=== PATIENT | female | born 1970 | race African-American/Black ===

== ENCOUNTER 2022-10-19 08:55 | Emergency (ER) | payer OTHER, SELFPAY ==
[2022-10-19 09:21] VITALS: BP 158/97; PULSE 68; RESP 16; TEMP 36.3; O2SAT 99
--- NOTE | 2022-10-19 09:38 | ED.UPPEXIN ---
HPI - Extremity Injury (Upper) General Chief Complaint: Extremity Injury, Upper Stated Complaint: cough Time Seen by Provider: 10/19/22 09:38 Source: patient Mode of arrival: ambulatory Limitations: no limitations History of Present Illness HPI narrative: 51-year-old female presents with complaint of cough for 5 days. Denies chest pain and shortness of breath. Afebrile. Taking [id number] cough suppressant and Mucinex with little relief. Patient reports cough is worse at night. All systems reviewed and negative except as noted above. Related Data Home Medications Medication Instructions Recorded Confirmed carvedilol 25 mg tablet 25 mg PO Q12H 06/05/22 10/19/22 fexofenadine 60 mg tablet (Charley 60 mg PO Q12H 06/05/22 10/19/22 Allergy) lisinopril 20 mg tablet 20 mg PO DAILY 06/05/22 10/19/22 rosuvastatin 5 mg tablet 5 mg PO DAILY 06/05/22 10/19/22 Allergies Allergy/AdvReac Type Severity Reaction Status Date / Time No Known Allergies Allergy Verified 10/19/22 09:35 Review of Systems Review of Systems: CONSTITUTIONAL: Denies fever, chills, or sweats. EYES: Denies visual changes, redness, or discharge. ENT: Denies rhinorrhea, congestion, sore throat, or otalgia. CARDIOVASCULAR: Denies chest pain, palpitations, or edema. RESPIRATORY: Reports cough. Denies dyspnea. GASTROINTESTINAL: Denies abdominal pain, nausea, vomiting, or diarrhea. GENITOURINARY: Denies dysuria or hematuria. SKIN: Denies rash or itching. MUSCULOSKELETAL: Denies back pain, joint pain, or myalgia. NEUROLOGIC: Denies headache, numbness, or weakness. PSYCHIATRIC: Denies anxiety or depression. All other systems reviewed are negative, except as documented in HPI. [facility] Past Medical History Medical History Acid reflux Allergies Hypertension Migraine Surgical History Surgical History S/P partial hysterectomy Tubal ligation status [place] teeth removed Family History Family History Grandparent Hypertension Heart disease Social History Social History Smoking status: Never smoker Second hand tobacco smoke exposure: No Alcohol intake: current Substance use: never Substance use type: does not use Lack of Transportation: No Lack of Food: Never True Current Housing: I Have Housing Concerned About Future Housing: No Difficulty Paying Gas/Electric Bills: No Difficulty Paying for Meds: No Currently Unemployed: No Education: Trade/Vocational Certificate Difficulty w/ Childcare or Family Care: No Comments At time of signature, agree with nursing past medical, surgical, social and family history. There is no relevant family history pertinent to the presenting complaint. Exam Narrative: GENERAL: This is a well-nourished, well-developed patient, in no apparent distress. HEAD: normocephalic, atraumatic. EYES: PERRL. Sclera clear/white. Vision is grossly intact. EARS: External ears normal, auditory canals clear and without drainage, TMs normal without perforation. Hearing grossly intact. NOSE: External nose normal with no obvious nasal discharge, nares without redness, no rhinorrhea. THROAT: Mucous membranes moist, posterior pharynx clear. NECK: Neck supple, non-tender without lymphadenopathy, masses or thyromegaly. CARDIOVASCULAR: Regular rate and rhythm without murmurs, gallops, or rubs. RESPIRATORY: Clear to auscultation. Breath sounds equal bilaterally. No wheezes, rales, or rhonchi. dry cough noted. SKIN: warm, Dry, intact with no suspicious lesions or rash, good texture and turgor. NEURO: awake, alert, and oriented to person, place and time. There were no obvious focal neurologic abnormalities. EXTREMITIES: No joint tenderness, effusion, or edema noted. Course Course Le
== END 2022-10-19 09:55 | disposition home or self-care (01) ==
PROVIDERS: Emergency Provider Nurse Practitioner Family
DX: J06.9 Acute upper respiratory infection, unspecified (principal); K21.9 Gastro-esophageal reflux disease without esophagitis; I10 Essential (primary) hypertension
CPT/HCPCS: 99213; G0463

== ENCOUNTER 2022-11-12 08:05 | Emergency (ER) | payer OTHER, SELFPAY ==
--- NOTE | ~2022-11-12 | XR_ITS ---
EXAMINATION: XR chest 2V DATE: 11/12/2022 08:27 INDICATION: Nonproductive cough TECHNIQUE: frontal and lateral views of the chest were obtained. COMPARISON: None FINDINGS: The lungs are clear with no focal airspace opacities, pulmonary edema, pleural effusion or pneumothor ax. The cardiomediastinal silhouette is normal. Visualized bones and soft tissues are unremarkable. IMPRESSION: 1. No acute cardiopulmonary disease. Reviewed, dictated and finalized at location A.
--- NOTE | 2022-11-12 08:06 | ED.URI ---
HPI - URI/Sore Throat General Chief Complaint: Upper Respiratory Infection Stated Complaint: cough Time Seen by Provider: 11/12/22 08:06 Source: patient Mode of arrival: ambulatory Limitations: no limitations History of Present Illness HPI Narrative: Ms Mcintyre is a 51-year-old female patient presenting to the clinic today with complaints of cough x1 month. She reports she was seen in the [facility] on October 19 2022 with same complaint. Was diagnosed with URI and given prescriptions for Medrol Dosepak, Tessalon Perles, and albuterol inhaler. She reports she has taken all the medicine and is using the albuterol inhaler but still having coughing fits. Cough is nonproductive. She denies any fever or chills. She denies any shortness of breath or chest pain. States her throat does hurt due to the coughing. Denies any runny nose or congestion. Feels as though she is having mucus in her throat but unable to get up. MD elicited complaint: cough Related Data Home Medications Medication Instructions Recorded Confirmed carvedilol 25 mg tablet 25 mg PO Q12H 06/05/22 11/12/22 fexofenadine 60 mg tablet (Charley 60 mg PO Q12H 06/05/22 11/12/22 Allergy) lisinopril 20 mg tablet 20 mg PO DAILY 06/05/22 11/12/22 rosuvastatin 5 mg tablet 5 mg PO DAILY 06/05/22 11/12/22 Allergies Allergy/AdvReac Type Severity Reaction Status Date / Time No Known Allergies Allergy Verified 11/12/22 08:09 Review of Systems Review of Systems: Pertinent positives per HPI. Patient denies any fever, chills, rash, headache, visual changes, dizziness, shortness of breath, chest pain, palpitations, nausea, vomiting, diarrhea, constipation, abdominal pain, or any urinary issues. [facility] Past Medical History Medical History Acid reflux Allergies Hypertension Migraine Surgical History Surgical History S/P partial hysterectomy Tubal ligation status [place] teeth removed Family History Family History Grandparent Hypertension Heart disease Social History Social History Smoking status: Never smoker Second hand tobacco smoke exposure: No Alcohol intake: current Substance use: never Substance use type: does not use Lack of Transportation: No Lack of Food: Never True Current Housing: I Have Housing Concerned About Future Housing: No Difficulty Paying Gas/Electric Bills: No Difficulty Paying for Meds: No Currently Unemployed: No Education: Trade/Vocational Certificate Difficulty w/ Childcare or Family Care: No Comments At the time of my signature, I reviewed and agree with the nursing past medical, surgical, social, and family history. There is no relevant family history pertinent to the patient complaint. Exam Narrative: General: Well-developed, well nourished, in no apparent distress Head: Normocephalic, atraumatic Eyes: Pupils equally round and reactive to light bilaterally, EOM intact, sclera and conjunctive clear, no discharge, lids normal Ears: TMs intact and clear, ear canals clear, no drainage, grossly hearing normal. Nose: Nares patent, no discharge, no inflammation, no sinus tenderness. Mouth: Oral pharynx without lesions or masses, good dentition, MMM. Oropharynx red Neck: Supple, trachea midline, no enlargement of anterior or posterior cervical nodes, no thyroid masses or goiter palpable. Cardio: Regular rate and rhythm, s1 and s2 normal, no murmur appreciated. Resp: Lung sounds tight otherwise clear, no rhonchi, rales, wheezing or rubs Course Course Emergency Course: Portions of this record may have been created with voice recognition software. Level of Care: Express Care Visit Vital Signs Vital signs: Vital Signs Temperature 36.1 C L
[2022-11-12 08:13] VITALS: BP 152/99; PULSE 73; RESP 16; TEMP 36.1; O2SAT 100
[2022-11-12] MEDS: IPRATROPIUM BR 0.02% INH SOLN 0.5 MG/2.5 ML VIAL INHALATION (08:45)
[2022-11-12] MEDS: ALBUTEROL SULFATE NEB 2.5 MG/3 ML INH INHALATION (08:45)
== END 2022-11-12 09:43 | disposition home or self-care (01) ==
PROVIDERS: Emergency Provider Nurse Practitioner Family
DX: R05.8 Other specified cough (principal); I10 Essential (primary) hypertension
CPT/HCPCS: 71046; 94640; 99213; G0463

== ENCOUNTER → 2022-11-20 10:29 | Outpatient (CLI) | payer OTHER, SELFPAY ==
--- NOTE | ~2022-11-20 | MM_ITS ---
EXAMINATION: MM screening john BI w sera HISTORY: Screening TECHNIQUE: Craniocaudal and mediolateral oblique 3-D tomosynthesis images were obtained and synthetic 2-D images were generated. CAD analysis was submitted and interpreted. COMPARISON: No prior mammogram is available for comparison at this institution. BREAST PARENCHYMAL COMPOSITION: The breasts are heterogeneously dense, which may obscure small masses . FINDINGS: There is no evidence of suspicious mass, calcification, or architectural distortion to sugg est malignancy in either breast. There has been no suspicious interval change. IMPRESSION: 1. No mammographic evidence of malignancy. 2. Recommend routine screening mammography in one year. BI-RADS Category 1: Negative Reviewed, dictated and finalized at location A.
== END ==
PROVIDERS: PCP Obstetrics & Gynecology; Visit Provider Obstetrics & Gynecology
DX: Z12.31 Encounter for screening mammogram for malignant neoplasm of breast (principal)
CPT/HCPCS: 77063; 77067

== ENCOUNTER 2023-03-27 10:52 | Outpatient (CLI) | payer OTHER, SELFPAY ==
--- NOTE | ~2023-03-27 | US_ITS ---
EXAMINATION: US pelvic complete w TV DATE: 03/27/2023 12:58 INDICATION: Pelvic pain. Status post total hysterectomy. Comparison:No prior studies for comparison. TECHNIQUE: Multiple transabdominal and endovaginal sonographic images of the pelvis performed. FINDINGS: The uterus and ovaries are surgically absent. No abnormal fluid collections or masses are i dentified. There is no free fluid in the pelvis. IMPRESSION: 1. Normal pelvic ultrasound post hysterectomy. Reviewed, dictated and finalized at location A.
== END 2023-03-27 10:53 ==
PROVIDERS: PCP Obstetrics & Gynecology; Visit Provider Obstetrics & Gynecology
DX: R10.2 Pelvic and perineal pain (principal)
CPT/HCPCS: 76830; 76856

== ENCOUNTER 2023-10-03 06:33 | Day surgery (SDC) | payer OTHER, SELFPAY ==
[2023-09-18 13:24] VITALS: BMI 30.7
[2023-09-18 14:18] VITALS: BMI 29.0
[2023-10-03 07:22] VITALS: BMI 29.5
--- NOTE | 2023-10-03 07:22 | WPDANESEPPF ---
Anes - Initial Pre Proc Eval Procedure: Operation Date: 10/03/23 09:00 Proposed Procedures p Colonoscopy - Brenden Galvin MD Date/Time: 10/03/23 07:22 Surgeon: Brenden Galvin MD Pre Op Diagnosis: Neoplasm screening Patient Data Age: 52 Gender: F Height: 1.57 m Weight: 72 kg Allergies Allergy/AdvReac Type Severity Reaction Status Date / Time iohexol Allergy Hives Verified 09/18/23 14:17 [From contrast - CT, X-RAY] Home Medications Medication Instructions Recorded Confirmed Type carvedilol 25 mg tablet 25 mg PO Q12H 06/05/22 09/18/23 History celecoxib 200 mg capsule 200 mg PO DAILY #90 caps 08/20/23 09/18/23 Rx fexofenadine 180 mg tablet 180 mg PO DAILY #90 tabs 08/20/23 09/18/23 Rx (Charley Allergy) lisinopril 20 mg tablet 20 mg PO DAILY #90 tabs 08/20/23 09/18/23 Rx pantoprazole 40 mg tablet,delayed 40 mg PO QAM #90 tabs 08/20/23 09/18/23 Rx release zolpidem 12.5 mg tablet,extended 12.5 mg PO QHS PRN insomnia #30 08/20/23 09/18/23 Rx release,multiphase (Ambien CR) tabs sodium,potassium,mag sulfates 17.5 See Rx Instructions PO .COMPLEX 09/18/23 Rx gram-3.13 gram-1.6 gram oral soln #354 mL (Suprep Bowel Prep Kit) Patient hx anesthesia problems: none Family hx anesthesia problems: none Results Review: All pre-operative results and documents have been reviewed as part of the pre-operative evaluation. [facility] Past Medical History Medical History (Updated 10/03/23 @ 07:56 by Mario Dukes DO) Acid reflux Allergies CHF (congestive heart failure) one hospitalization 10 years ago. States she hasn't had any issues since then. Hyperlipidemia Hypertension Migraine MIRELLA (obstructive sleep apnea) Surgical History Surgical History H/O: hysterectomy Tubal ligation status [place] teeth removed Family History Family History Grandparent Hypertension Heart disease Social History Social History Smoking status: Never smoker Second hand tobacco smoke exposure: No Alcohol intake: current Substance use: never Substance use type: does not use Lack of Transportation: No Lack of Food: Never True Current Housing: I Have Housing Concerned About Future Housing: No Difficulty Paying Gas/Electric Bills: No Difficulty Paying for Meds: No Currently Unemployed: No Education: Trade/Vocational Certificate Difficulty w/ Childcare or Family Care: No Living arrangements: with family Occupation/Education: occupation Gender identity (if verbalized by the patient): Female Sexual Orientation (if Verbalized by the Patient): Straight or Heterosexual Spiritual care concerns: No Anes - Eval Final PreProcedure Day of Procedure 10/03/23 07:22 Patient weight: overweight Heart: regular rate and rhythm Lungs: clear to auscultation Airway: Mallampati scale class II Neurological: alert and oriented Last oral intake: >/= 8 hours ASA classification: III Emergent: no Anesthetic plan: proceed Anesthesia type and monitoring: general GIVS and standard monitoring Results Review: All pre-operative results and documents have been reviewed as part of the pre-operative evaluation. Informed Consent: The patient's anesthetic plan and its attendant risks and benefits were discussed with the patient/family/POA. Questions were solicited and answers provided to the satisfaction of the patient/family/POA.
[2023-10-03] MEDS: LACTATED RINGERS 1,000 ML 150 ML IV CONT (07:40)
[2023-10-03 07:41] VITALS: BP 123/95; PULSE 88; RESP 16; TEMP 36.9; O2SAT 100
--- NOTE | 2023-10-03 08:12 | PM.HPGS ---
History of Present Illness History of Present Illness Consent: Risks, benefits, and alternatives have been discussed and questions answered. Patient agrees to proceed with procedure. Chief complaint: Neoplasm screening Narrative: Lucinda Mcintyre is a 52 year old female referred for screening colonoscopy. Patient gives a history of several prior colonoscopies. These were performed in [facility]. Patient was found to have colon polyps. Initially had a follow-up exam shortly after initial exam. Two years ago was told to have follow-up colonoscopy in 2 years. No old records accompany patient. Consider bowel habits are normal. Family history is significant that her mother had colon polyps. To her current weight appetite and bowel movements are normal. She has no abdominal pain nor bleeding. Review of Systems Review of Systems: Review of systems noncontributory. [facility] Past Medical History Medical History (Updated 10/03/23 @ 08:14 by Brenden Galvin MD) Acid reflux Allergies CHF (congestive heart failure) one hospitalization 10 years ago. States she hasn't had any issues since then. Hyperlipidemia Hypertension Migraine MIRELLA (obstructive sleep apnea) Surgical History Surgical History H/O: hysterectomy Tubal ligation status [place] teeth removed Family History Family History Grandparent Hypertension Heart disease Social History Social History Smoking status: Never smoker Second hand tobacco smoke exposure: No Alcohol intake: current Substance use: never Substance use type: does not use Lack of Transportation: No Lack of Food: Never True Current Housing: I Have Housing Concerned About Future Housing: No Difficulty Paying Gas/Electric Bills: No Difficulty Paying for Meds: No Currently Unemployed: No Education: Trade/Vocational Certificate Difficulty w/ Childcare or Family Care: No Living arrangements: with family Occupation/Education: occupation Gender identity (if verbalized by the patient): Female Sexual Orientation (if Verbalized by the Patient): Straight or Heterosexual Spiritual care concerns: No Meds Home Medications and Allergies Home Medications Medication Instructions Recorded Confirmed Type carvedilol 25 mg tablet 25 mg PO Q12H 06/05/22 09/18/23 History celecoxib 200 mg capsule 200 mg PO DAILY #90 caps 12/18/23 01/16/24 Rx fexofenadine 180 mg tablet 180 mg PO DAILY #90 tabs 08/20/23 09/18/23 Rx (Charley Allergy) lisinopril 20 mg tablet 20 mg PO DAILY #90 tabs 08/20/23 09/18/23 Rx pantoprazole 40 mg tablet,delayed 40 mg PO QAM #90 tabs 08/20/23 09/18/23 Rx release zolpidem 12.5 mg tablet,extended 12.5 mg PO QHS PRN insomnia #30 08/20/23 09/18/23 Rx release,multiphase (Ambien CR) tabs sodium,potassium,mag sulfates 17.5 See Rx Instructions PO .COMPLEX 09/18/23 Rx gram-3.13 gram-1.6 gram oral soln #354 mL (Suprep Bowel Prep Kit) Allergies Allergy/AdvReac Type Severity Reaction Status Date / Time iohexol Allergy Hives Verified 09/18/23 14:17 [From contrast - CT, X-RAY] Vital Signs Vital Signs - 24 hr 10/03/23 07:41 Temperature 98.4 F Pulse Rate 88 Respiratory Rate 16 Blood Pressure 123/95 H Pulse Oximetry 100 Oxygen Delivery Room Air Exam Narrative: Physical exam reveals patient to be alert. Vital signs stable. HEENT exam is unremarkable. Patient is anicteric. Lungs are clear to auscultation and to percussion is without murmur or extra sounds. Abdomen bowel sounds are present soft nontender with no organomegaly. Digital external rectal exam normal. Assessment and Plan Assessment and plan (1) History of colon polyps: Code(s): Z86.010 - Personal history of colonic polyps Status: Acute Assessment and P
[2023-10-03 09:10] VITALS: BP 124/78; PULSE 94; RESP 16; O2SAT 98
[2023-10-03 09:20] VITALS: BP 121/77; PULSE 94; RESP 16; O2SAT 98
[2023-10-03 09:35] VITALS: BP 127/90; PULSE 78; RESP 16; O2SAT 100
--- NOTE | 2023-10-03 11:17 | WPDANESPN ---
Anes - Prog Note Post-Op Date/Time: 10/03/23 11:17 Cardiovascular status: normal Respiratory status: normal Airway patency: baseline Mental status: baseline Post-Op hydration status: normal Vital Signs: Last Vital Signs Temp 36.9 C 10/03/23 07:41 Pulse 78 10/03/23 09:35 Resp 16 10/03/23 09:35 BP 127/90 10/03/23 09:35 Pulse Ox 100 10/03/23 09:35 O2 Del Method Room Air 10/03/23 09:35 Pain Score (VAS): 0 I/O: Intake & Output 10/02/23 10/03/23 10/03/23 23:59 07:59 15:59 Intake Total 700 Balance 700 Post-procedural complaints: none Patient Feedback: Patient satisfied with anesthetic care. Other Findings: Patient vital signs back to baseline. Patient denies nausea and vomiting. Patient's pain under control. Patient OK for discharge.
== END 2023-10-03 09:52 | disposition home or self-care (01) ==
PROVIDERS: PCP Physician Assistant; Visit Provider Internal Medicine Gastroenterology
PROC: 0DJD8ZZ Inspection of Lower Intestinal Tract, Via Natural or Artificial Opening Endoscopic (ICD-10-PCS; CPT 45378; principal; 2023-10-03 09:00)
DX: Z86.010 Personal history of colon polyps (principal); K64.8 Other hemorrhoids; Z83.719 Family history of colon polyps, unspecified
CPT/HCPCS: 45378

== ENCOUNTER 2024-10-28 12:29 | Outpatient (CLI) | payer OTHER, SELFPAY | END 2024-10-28 12:30 | disposition home or self-care (01) | LOC: ANHLAB 12:30 | PROVIDERS: PCP Internal Medicine; Visit Provider Obstetrics & Gynecology | DX: N95.1 Menopausal and female climacteric states (principal) | CPT/HCPCS: 36415; 82672; 83001 ==

== ENCOUNTER 2025-03-18 10:18 | Outpatient (CLI) | payer OTHER, SELFPAY ==
--- NOTE | 2025-03-18 10:34 | ECG_ITS ---
Test Date: 2025-03-18 10:43:18 Measurements Intervals [place] Rate: 63 P: 58 ME: 181 QRS: 12 QRSD: 94 T: 19 QT: 370 QTc: 379 Interpretive Statements SINUS RHYTHM No previous ECG available for comparison Electronically Signed On 03-18-2025 12:49:41 CDT by Mitch Vaughn M.D.
--- OUTSIDE RECORDS SUMMARY | 2025-03-18 10:36 | XMS_ITS | Clinical Summary ---
Author Organization [facility] [place] [address] Address [address] [place] [address] Care Team Providers Care Coding Compliance Auditor Name Role Phone Jose Guadalupe Guardado Primary Care Provider [phone] Allergies No known active allergies Medications fluticasone propion-salmete roL (ADVAIR DISKUS) 250-50 mcg/dose diskus inhaler Inhale 1 puff 2 (two) times a day 12/06/[address] (PROTONIX) 40 mg EC tablet Take 1 tablet (40 mg total) by mouth every morning 11/28/2022 Active zolpidem CR (AMBIEN CR) 12.5 mg CR tablet Take 1 tablet (12.5 mg total) by mouth nightly as needed 11/28/2022 Active carvediloL (COREG) 25 mg tablet Take 1 tablet (25 mg total) by mouth 2 (two) times a day 180 tablet 2 05/06/2024 Active lisinopriL (PRINIVIL,ZESTR IL) 20 mg tablet Take 1 tablet (20 mg total) by mouth daily 90 tablet 2 05/06/2024 Active Active Problems Problem Noted Date Diagnosed Date Cardiomyopathy due to hypertension, 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 02/20/2023 Surgical History Surgery Date Site/Laterality Comments HYSTERECTOMY age 43 Medical History Medical History Date Comments Hypertension Family History Medical History Relation Name Comments Hypertension Paternal Grandmother Relation Name Status Comments Paternal Grandmother Social History Tobacco Use Types Packs/Day Years Used Date Smoking Tobacco: Never Smokeless Tobacco: Never Comments No Sex and Gender Information Value Date Recorded Sex Assigned at Not on file Legal Sex Female 8:09 PM MEDICAL OR SURGICAL INSTRUMENT MAKER Gender Identity Female 05/01/2024 7:51 AM CDT Sexual Orientation Not on file Obstetrics History Para Term AB IAB SAB Ectopic Multiple Livin g Live Births 1 Date Outcome GA Total Labor Labor/2nd/3rd Weight Sex Type Anes PTL Meseret A1 A5 Name Clin Last Filed Vital Signs Vital Sign Reading Time Taken Comments Blood Pressure 128/80 02/26/2024 10:22 AM CDT Pulse 67 02/26/2024 10:22 AM CDT Temperature - - Respiratory Rate - - Oxygen Saturation 100% 02/26/2024 10:22 AM CDT Inhaled Oxygen Concentration - - Weight 73.2 kg (161 lb 6.4 oz) 02/26/2024 10:22 AM CDT Height 157.5 cm (5' 2) 02/26/2024 10:22 AM CDT Body Mass Index 29.52 02/26/2024 10:22 AM CDT Plan of Treatment Health Maintenance Due Date Last Done Comments Colon Cancer Screening-Colonoscopy 1971 Depression Screening 1971 Hepatitis C Screening 1971 DTaP/Tdap/Td Vaccine (1 - Tdap) 12/08/1982 Hepatitis B Screening 12/08/1989 Regular Well Visit/Exam 18-64 12/08/1989 Zoster Vaccine (1 of 2) 12/08/2021 Covid-19 Vaccine (2 - 2023-2 5 season) 2024 05/30/2022 Influenza Vaccine (#1) 2025 2, 06/09/2009 Breast Cancer Screening-Mammogram 11/04/2025 11/04/2024 Pneumococcal vaccine <65 Aged Out No longer eligible based on patient's age to complete this topic Procedures Procedure Name Priority Date/Time Associated Diagnosis Comments SCREENING MAMMOGRAM BILATERAL W JERMAINE Schedule Routine, Read Routine (OP Routine) 11/04/2024 1:58 PM MEDICAL OR SURGICAL INSTRUMENT MAKER Screening mammogram, encounter for from Last 3 Months or Most Recently Relevant to Health Maintenance Results * (ABNORMAL) Screening Mammogram Bilateral W Jermaine (11/04/2024 1:58 PM MEDICAL OR SURGICAL INSTRUMENT MAKER) Anatomical Region Laterality Modality Breast Bilateral Mammography 11/13/2024 8:38 AM CDT Addenda Addendum by Gisele Laboy MD on 11/13/2024 8:38 AM CDT At the time of interpretation, the exam was, in fact, compared to a prior study dated November 20, 2022. The interpretation remains unchanged, as the area in question in the posterior left breast may represent a change. Axillary lymph nodes were not seen on the prior study. Electronically signed by: Gisele Laboy M.D. Impressions 11/12/2024 9:59 AM CDT Asymmetry and lymph node as described. The asymmetry should have additional mammographic and possibly sonographic imaging. Ultrasound only is requested for the node. BI-RADS ATLAS category (left): 0 - Incomplete: Needs Additional Imaging Evaluation The patient has been or will be contacted. We recommend annual screening mammography for women at average risk of breast cancer beginning at age 40, based on guidelines of the [place] [employer] (ACR Practice Parameter for the Performance of Screening and Diagnostic Mammography) and [place] [employer]. For women with and elevated risk of breast cancer, please refer to the ACR Practice Parameter for specific screening recommendations. Narrative 11/12/2024 9:59 AM CDT Screening Mammogram Bilateral W Jermaine: 11/04/24 The study was acquired using full field digital technology and interpreted from soft copy. 2D digital mammographic views, as well as 3D digital tomosynthesis were performed in the CC and MLO projections. This study was resulted using Computer-Aided Detection (CAD). CLINICAL: Screening mammogram, encounter for. No relevant medical history has been documented for this patient. No known family history of breast cancer. No comparisons were made when reading this study. BREAST TISSUE: The breasts are heterogeneously dense, which may obscure small masses. FINDINGS: No suspicious calcifications or other suspicious findings are seen within either breast. There is an asymmetry with possible distortion on the LCC view, central and medial to the nipple line. In addition, there is a lymph node with possible cortical thickening projected over the axilla on the left MLO view. Procedure Note Gisele Laboy MD - 11/12/2024 Screening Mammogram Bilateral W Jermaine: 11/04/24 The study was acquired using full field digital technology and interpretedfrom soft copy. 2D digital mammographic views, as well as 3D digitaltomosynthesis were performed in the CC and MLO projections. This study wasresulted using Computer- Aided Detection (CAD). CLINICAL: Screening mammogram, encounter for. No relevant medicalhistory has been documented for this patient. No known family history ofbreast cancer. No comparisons were made when reading this study. BREAST TISSUE: The breasts are heterogeneously dense, which may obscure small masses. FINDINGS: No suspicious calcifications or other suspicious findings areseen within either breast. There is an asymmetry with possible distortionon the LCC view, central and medial to the nipple line. In addition, thereis a lymph node with possible cortical thickening projected over theaxilla on the left MLO view. IMPRESSION: Asymmetry and lymph node as described. The asymmetry should haveadditional mammographic and possibly sonographic imaging. Ultrasound onlyis requested for the node. BI-RADS ATLAS category (left): 0 - Incomplete: Needs Additional ImagingEvaluation The patient has been or will be contacted. We recommend annual screening mammography for women at average risk ofbreast cancer beginning at age 40, based on guidelines of the AmericanCollege of [employer] (ACR Practice Parameter for the Performance ofScreening and Diagnostic Mammography) and [place] [employer]. For women with and elevated risk ofbreast cancer, please refer to the ACR Practice Parameter for specificscreening recommendations. us Self Screening Mammogram IMG MAMMO PROCEDURES Ed ited Result - Final from Last 3 Months or Most Recently Relevant to Health Maintenance Insurance [facility] CHOICE PLUS Care Teams Coding Compliance Auditor Relationship Specialty Start Date End Date Jose Guadalupe Guardado DO [address] [facility] [address] [place], [place] [id number] PCP - General Internal Medicine 11/17/24
--- OUTSIDE RECORDS SUMMARY | 2025-03-18 10:36 | XMS_ITS | Referral Summary ---
Author Organization [facility] [place] [address] Address [address] [place] [address] Care Team Providers Care Pomology Teacher Name Role Phone Jose Guadalupe Guardado Primary Care Provider [phone] Allergies No known active allergies Medications fluticasone [...] to hypertension, 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 02/20/2023 Social History Tobacco Use Types Packs/Day Years Used Date Smoking Tobacco: Never Smokeless Tobacco: Never Comments No Sex and Gender Information Value Date Recorded Sex Assigned at Not on file Legal Sex Female 8:09 PM CLINICAL ASSOCIATE Gender Identity Female 05/01/2024 7:51 AM CDT Sexual Orientation Not on file Last Filed Vital Signs Vital Sign Reading [...] 02/26/2024 10:22 AM CDT Plan of Treatment Not on file Procedures Procedure Name Priority Date/Time Associated Diagnosis Comments SCREENING MAMMOGRAM BILATERAL W JERMAINE Schedule Routine, Read Routine (OP Routine) 11/04/2024 1:58 PM CLINICAL ASSOCIATE Screening mammogram, encounter for from Last 3 Months or Most Recently Relevant to Health Maintenance Results * (ABNORMAL) Screening Mammogram Bilateral W Jermaine (11/04/2024 1:58 PM CLINICAL ASSOCIATE) Anatomical Region Laterality Modality Breast Bilateral Mammography [...] age 40, based on guidelines of the [employer] [place] [employer] (ACR Practice Parameter for the Performance of Screening and Diagnostic Mammography) and [employer] [place] [employer]. For women [...] the Performance ofScreening and Diagnostic Mammography) and [employer] [place] [employer] and [employer]nec[employer]. For women with and elevated risk ofbreast cancer, please refer to the ACR Practice Parameter for specificscreening recommendations. us Self Screening Mammogram IMG MAMMO PROCEDURES Ed ited Result - Final from Last 3 Months or Most Recently Relevant to Health Maintenance Insurance [facility] CHOICE PLUS [facility] CHOICE PLUS Care Teams Pomology Teacher Relationship Specialty Start Date End Date Jose Guadalupe Guardado DO [address] [facility] [address] [place], [place] [id number] PCP - General Internal Medicine 11/17/24
== END 2025-03-18 10:19 | disposition home or self-care (01) ==
LOC: ANHSURGERY 10:22
PROVIDERS: Visit Provider Podiatrist Foot & Ankle Surgery
DX: I10 Essential (primary) hypertension (principal)
CPT/HCPCS: 93005

== ENCOUNTER 2025-03-20 00:55 | Day surgery (SDC) | payer OTHER, SELFPAY ==
[2025-03-13 15:02] VITALS: BMI 27.4
--- NOTE | 2025-03-13 15:19 | SUR.PREOP ---
Report to the Outpatient Waiting Room, entrance under the green pavilion located off [facility], at time 0900 on date 03/20/25. Planned Procedure Time: 1100.? Time changes happen often and if your time is changed the preop area will call you the afternoon before. - You and your visitor will be asked to self-screen and do not enter if you have any COVID symptoms. Please call surgeon if you need to reschedule. - A mask is optional within the hospital at this time. Patients may have clear liquids (water, carbonated beverages, clear teas, apple juice) until 3 hours prior to surgery with a maximum of 20 ounces. - No food from midnight until time of surgery and no smoking, or chewing tobacco (or any form of nicotine). No chewing gum, candy or mints. - Infants may have breast milk until 4 hours before surgery, infant formula 6 hours prior to surgery. - Children will be allowed to drink immediately following surgery.? If applicable, please bring a bottle or sippy cup to assist with drinking. Juice, water, soda, and popsicles are readily available.? For infants on formula, please bring formula the day of surgery.? Pacifiers are allowed. Take only the following medications with a SIP of water on the morning of surgery: CARVEDILOL DO NOT STOP ANY OF YOUR OTHER PRESCRIPTION MEDICATIONS PRIOR TO SURGERY EXCEPT THE FOLLOWING Hold all vitamins and supplements for 3 days per anesthesiologist. Medications to discontinue per physician STOP ALL VITAMINS AND SUPPLEMENTS 3 DAYS PRIOR TO PROCEDURE Date to take last dose 03/16/25 Please no make-up, nail hebrew, hairspray, perfume, deodorant, or body powder the day of surgery.? No jewelry (including any body piercings) or valuables the day of surgery, leave them at home.? Please take a shower or bath the night before, or the morning of, surgery with an antibacterial soap.? Wear comfortable, loose fitting clothing.? Children are encouraged to wear pajamas. - Jewelry must be removed prior to entering the operating room.? Rings and piercings that are not removed may be cut off. - The hospital will not accept responsibility for valuables.? - Please leave all valuables, including medications, at home the day of surgery. If you are going home after surgery, a licensed boat driver must drive you home.? - NO public transportation without another adult if you receive anesthesia. - We recommend that an adult stay with you for 24 hours following discharge. - We also recommend that you do not drive, make important decision, drink alcoholic beverages, or take any drugs that were not prescribed by your health care provider for at least 24 hours after your discharge time. For Pediatric surgeries, we recommend two adults accompany the child home. Follow any additional instructions given to you from your surgeon. Telephone instructions given to CATHERINE WINN and asked if any additional questions and then verbalized understanding. Patient advised to call surgeon office or pre surgery nurse liaison [phone] if any additional questions.
[2025-03-20] VITALS (8 sets, daily range): BP systolic 138–184; BP diastolic 85–117; PULSE 52–68; RESP 14–20; TEMP 36.4; O2SAT 96–100; BMI 27.9
--- NOTE | ~2025-03-20 | XR_ITS ---
EXAMINATION: XR surgery orthopedic DATE: 03/20/2025 11:27 CDT INDICATION: ARTHRODESIS 1ST METATARSAL RIGHT FOOT . TECHNIQUE: 3 fluoroscopic images of the right foot were obtained during right first MTP joint arthrod esis. Fluoroscopy exposure time was 25 seconds. Air Kerma 0.1490 mGy. DAP 2.5024 mGym2. COMPARISON: None FINDINGS/IMPRESSION: Fluoroscopic documentation of right first MTP joint arthrodesis. Please refer to the operative note f or complete procedural details. Reviewed, dictated and finalized at location K.
--- OUTSIDE RECORDS SUMMARY | 2025-03-20 00:58 | XMS_ITS | Referral Summary ---
Author Organization [facility] [place] [address] Address [address] [place] [address] Care Team Providers Care Firearms Specialist Name Role Phone Jose Guadalupe Guardado Primary Care Provider [phone] Allergies No known active allergies Medications fluticasone propion-salmet Cruz (ADVAIR DISKUS) 250-50 mcg/dose diskus inhaler Inhale 1 puff 2 (two) times a day [address] (PROTONIX) 40 mg EC tablet Take 1 tablet (40 mg total) by mouth every morning 3 Active zolpidem CR (AMBIEN CR) 12.5 mg CR tablet Take 1 tablet (12.5 mg total) by mouth nightly as needed 3 Active lisinopriL (PRINIVIL,ZEST RIL) 20 mg tablet Take 1 tablet (20 mg total) by mouth daily 90 tablet 2 4 Active carvediloL (COREG) 25 mg tablet TAKE 1 TABLET(25 MG) BY MOUTH TWICE DAILY 180 tablet 5 Active carvediloL (COREG) 25 mg tablet Take 1 tablet (25 mg total) by mouth 2 (two) times a day 180 tablet 2 4 03/19/20 25 Discontinued Active Problems Problem Noted Date Diagnosed Date Cardiomyopathy due to hypertension, 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 02/20/2023 Social History Tobacco Use Types Packs/Day Years Used Date Smoking Tobacco: Never Smokeless Tobacco: Never Comments No Sex and Gender Information Value Date Recorded Sex Assigned at Not on file Legal Sex Female 8:09 PM EASEMENT WORKER Gender Identity Female 05/01/2024 7:51 AM CDT [...] Read Routine (OP Routine) 11/04/2024 1:58 PM EASEMENT WORKER Screening mammogram, encounter for from Last 3 Months or Most Recently Relevant to Health Maintenance Results * (ABNORMAL) Screening Mammogram Bilateral W Jermaine (11/04/2024 1:58 PM EASEMENT WORKER) Anatomical Region Laterality Modality Breast Bilateral Mammography [...] age 40, based on guidelines of the [place] [employer] (ACR Practice Parameter for the Performance of Screening and Diagnostic Mammography) and [place] [employer]. For women [...] the Performance ofScreening and Diagnostic Mammography) and [place] [employer] of[employer]ians and Gynec[employer]. For women with and elevated risk ofbreast cancer, please refer to the ACR Practice Parameter for specificscreening recommendations. us Self Screening Mammogram IMG MAMMO PROCEDURES Ed ited Result - Final from Last 3 Months or Most Recently Relevant to Health Maintenance Insurance [facility] Care Teams Firearms Specialist Relationship Specialty Start Date End Date Jose Guadalupe Guardado DO [address] [facility] [address] [place] [address] PCP - General Internal Medicine 11/17/24
--- OUTSIDE RECORDS SUMMARY | 2025-03-20 00:58 | XMS_ITS | Clinical Summary ---
Author Organization [facility] [place] [address] Address [address] [place] [address] Care Team Providers Care Garment Folder Name Role Phone Jose Guadalupe Guardado Primary Care Provider [phone] Allergies No known active allergies Medications fluticasone [...] on file Legal Sex Female 8:09 PM TRADE MARK EXAMINER Gender Identity Female 05/01/2024 7:51 AM CDT [...] Read Routine (OP Routine) 11/04/2024 1:58 PM TRADE MARK EXAMINER Screening mammogram, encounter for from Last 3 Months or Most Recently Relevant to Health Maintenance Results * (ABNORMAL) Screening Mammogram Bilateral W Jermaine (11/04/2024 1:58 PM TRADE MARK EXAMINER) Anatomical Region Laterality Modality Breast Bilateral Mammography [...] age 40, based on guidelines of the [place] [employer] (ACR Practice Parameter for the Performance of Screening and Diagnostic Mammography) and [place] [employer]. For women [...] the Performance ofScreening and Diagnostic Mammography) and [place] [employer] and [employer]nec[employer]. For women with and elevated risk ofbreast cancer, please refer to the ACR Practice Parameter for specificscreening recommendations. us Self Screening Mammogram IMG MAMMO PROCEDURES Ed ited Result - Final from Last 3 Months or Most Recently Relevant to Health Maintenance Insurance Dr [address], [facility] [id number] CHOICE PLUS [facility] HMO/PPO Address: [address] [address] [place] [id number] [facility] CHOICE PLUS [facility] HMO/PPO Address: [place] [address] Care Teams Garment Folder Relationship Specialty Start Date End Date Jose Guadalupe Guardado DO [address] [facility] [address] [place] [address] PCP - General Internal Medicine 11/17/24
--- NOTE | 2025-03-20 07:10 | WPDHPUPDATE1 ---
History and Physical Update Update Date/Time: 03/20/25 07:10 History and Physical has been reviewed, including an updated exam of the patient. There are NO changes in the patient's condition. Risks, benefits, and alternatives have been discussed and questions answered. Patient agrees to proceed with procedure.
[2025-03-20] MEDS: LACTATED RINGERS 1,000 ML 30 ML IV CONT (09:05)
--- NOTE | 2025-03-20 11:05 | WPDANESEPPF ---
Anes - Initial Pre Proc Eval Procedure: Operation Date: 03/20/25 11:00 Proposed Procedures p Arthrodesis First Metatarsal Phalangeal Joint Right Foot - Arnoldo Swift Jr., DPM Date/Time: 03/20/25 11:05 Surgeon: Arnoldo Swift Jr., DPM Pre Op Diagnosis: Arthritic Bunion Rt Foot, Patient Data Age: 54 Gender: F Height: 1.57 m Weight: 69.3 kg Last Vital Signs Temp 36.4 C L 03/20/25 08:40 Pulse 66 03/20/25 08:40 BP 149/92 H 03/20/25 08:40 Pulse Ox 100 03/20/25 08:40 Allergies Allergy/AdvReac Type Severity Reaction Status Date / Time Iodinated Contrast Media Allergy Hives Verified 03/20/25 09:17 iohexol (From contrast - CT, Allergy Hives Verified 03/20/25 09:17 X-RAY) Home Medications ?Medication ?Instructions ?Recorded ?Confirmed ?Type carvedilol 25 mg tablet 25 mg PO Q12H 06/05/22 03/20/25 History lisinopril 20 mg tablet 20 mg PO DAILY #90 tabs 08/20/23 03/20/25 Rx fexofenadine 180 mg tablet 180 mg PO DAILY #90 tabs 08/28/24 03/20/25 Rx ([facility]) pantoprazole 40 mg tablet,delayed 40 mg PO QAM #90 tabs 09/04/24 03/20/25 Rx release esterified 1 tablet PO DAILY #90 tabs 01/28/25 03/20/25 Rx estrogens-methyltestosterone 0.625 mg-1.25 mg tablet (Covaryx H.S.) eszopiclone 3 mg tablet (Lunesta) 3 mg PO QHS #30 tabs 03/10/25 03/20/25 Rx Lactobacillus acidophilus 10 10,000 mmu cells PO DAILY 03/13/25 03/20/25 History billion cell capsule (Probiotic) apple cider vinegar 250 mg 250 mg PO DAILY 03/13/25 03/20/25 History chewable tablet multivitamin (Daily Multi-Vitamin 1 tablet PO DAILY 03/13/25 03/20/25 History tablet) Patient hx anesthesia problems: none Family hx anesthesia problems: none Results Review: All pre-operative results and documents have been reviewed as part of the pre-operative evaluation. [facility] Past Medical History Medical History CHF (congestive heart failure) one hospitalization 10 years ago. States she hasn't had any issues since then. MIRELLA (obstructive sleep apnea) Hyperlipidemia Hypertension Migraine Acid reflux Allergies Surgical History Surgical History H/O liposuction of abdomen H/O: hysterectomy [place] teeth removed Tubal ligation status Family History Family History Grandparent Hypertension Heart disease Social History Social History Smoking status: Never smoker Second hand tobacco smoke exposure: No Alcohol intake: current Substance use: never Substance use type: does not use Lack of Transportation: No Lack of Food: Never True Current Housing: I Have Housing Concerned About Future Housing: No Difficulty Paying Gas/Electric Bills: No Difficulty Paying for Meds: No Currently Unemployed: No Education: Trade/Vocational Certificate Difficulty w/ Childcare or Family Care: No Living arrangements: with family Occupation/Education: occupation Gender identity (if verbalized by the patient): Female Sexual Orientation (if Verbalized by the Patient): Straight or Heterosexual Spiritual care concerns: No Anes - Eval Final PreProcedure Day of Procedure 03/20/25 11:05 Patient weight: overweight Heart: regular rate and rhythm Lungs: clear to auscultation Airway: Mallampati scale class II Neurological: alert and oriented Last oral intake: >/= 8 hours ASA classification: III Emergent: no Anesthetic plan: proceed Anesthesia type and monitoring: general GIVS and standard monitoring Results Review: All pre-operative results and documents have been reviewed as part of the pre-operative evaluation. Informed Consent: The patient's anesthetic plan and its attendant risks and benefits were discussed with the patient/family/POA. Questions were solicited and answers provided to the satisfaction of the patient/family/POA.
[2025-03-20] MEDS: ceFAZolin 2 GM in SODIUM CHLORIDE 0.9% IV 50 ML 100 ML IVPB (11:13)
[2025-03-20] MEDS: BUPivacaine HCL 0.5% 10 ML AMP INFILTRATE (11:13)
[2025-03-20] MEDS: LIDOCAINE 2% LOCAL INJ 20 ML VIAL 10 ML INFILTRATE (11:13)
--- NOTE | 2025-03-20 12:11 | P.OP_ITS ---
Procedure Note - Detailed Date of Procedure 03/20/25 Pre-op Diagnosis Arthritic Bunion Right Foot Post-op Diagnosis Same Procedure Performed Arthrodesis of the 1st metatarsal phalangeal joint right foot Surgeon Arnoldo Swift Jr., DPM Anesthesia General and Local Indications Paiful right great toe joint with bunion deformity Findings Loss of articular cartilage especially to the medial head of the proximal phalanx Description of Procedure PROCEDURE IN DETAIL: Under mild sedation, the patient was brought into the operating room, placed on the operating table in supine position. A pneumatic ankle tourniquet was placed about the patient's ipsilateral ankle. Following general anesthesia and a Aguilar Block with 20ccs of 2% Lidocaine plain and 0.5% Marcaine plain, the foot was then scrubbed, prepped, and draped in the usual aseptic manner. An Esmarch bandage was then used to exsanguinate the patient's foot and the pneumatic ankle tourniquet was then inflated. Surgery began in the following manner: Attention was directed to the dorsal medial aspect of the 1st metatarsophalangeal joint where there was a moderate subcutaneous prominence was noted. The incision was made starting along the central shaft of the 1st metatarsal and extending just proximal to the interphalangeal joint of the hallux. The incision was continued deep down through the subcutaneous tissues using sharp and blunt dissection. All bleeders were cauterized as necessary. At this point, the dissection was continued down to the level of the periosteum and capsular structures overlying the 1st metatarsophalangeal joint. A full length periosteum and capsular incision was made just medial to the extensor hallucis longus tendon. The periosteum and capsular structures were freed from the base of the proximal phalanx as well as the distal 1st metatarsal. At this point, the 1st metatarsophalangeal joint was identified. There was loss of articular cartilage to the head of the 1st metatarsal as well as the base of the proximal phalanx worse centrally and medially. There was significant broadening and hypertrophy of the 1st metatarsophalangeal joint. Utilizing a sagittal bone saw, the hypertrophied 1st metatarsal was resected dorsally, medially, and laterally. A power bur was used to make sure that there were no rough edges and also to further debride the hypertrophic 1st metatarsal. Next, a rongeur was used to resect the hypertrophic base of the proximal phalanx. At this point, the reamer system for the Maxforce plate system was used to denude the degenerative cartilage from the head of the 1st metatarsal as well as the base of the proximal phalanx. The cartilage and subchondral bone were fully debrided utilizing the reamer system until healthy bleeding bone was noted. Next, a 2-0 drill bit was used to further fenestrate the head of the 1st metatarsal as well as the base of the proximal phalanx in order to allow fusion across the 1st metatarsophalangeal joint. Next, a guide wire for a 3.5 headless Arthrex compression screw was driven from the medial aspect of the base of the proximal phalanx into the head of the 1st metatarsal in order to serve as temporary fixation, next the cannulated screw was driven and provided excellent compression. Next A large steel plate was used to make sure that the hallux was in a rectus position both in the sagittal plane as well as the frontal plane. Excellent position of the hallux was noted. Next, a Maxforce plate was placed atop the 1st metatarsophalangeal joint held in position with [place] wires. Utilizing standard principles and techniques, the distal drill holes were drilled and three 3.0 mm fully-threaded locking screws were driven from dorsal to plantar holding the distal aspect of the plate intact. At this point, the Maxforce compression system was utilized from dorsal distal to proximal plantar across the 1st metatarsophalangeal joint with excellent compression noted. Next, a 3.0mm locking screw was used to further compress the joint along the oblong dynamic compression screw slot. Next, the remaining 2 proximal drill holes were drilled from dorsal to plantar across and two 3.0 mm locking screws were driven from dorsal to plantar. The wound site was then flushed with copious amounts of sterile saline. Fluoroscopy was used to make sure that the plate was appropriately aligned and oriented and also to make sure that the screws were of appropriate length and orientation. Excellent position of the 1st metatarsophalangeal joint was visualized in all planes. Next, the periosteum and capsular structures were reapproximated with 3-0 Vicryl. Next, the subcutaneous structures were reapproximated with 4-0 Vicryl. Next, the skin was reapproximated and coapted utilizing 4-0 Monocryl in running subcuticular suture fashion technique. Upon completion of the procedure, the incision was dressed with Steri-Strips, Adaptic, 4x4s, Kerlix, and Coban. The pneumatic ankle tourniquet was then deflated and a prompt hyperemic response was noted to all digits of the foot. A posterior splint was then applied to the affected lower extremity. It is important to note that Dr. Swift was present throughout the procedure. The patient did very well with the procedure and the anesthesia. The patient was transferred to the recovery room with vital signs stable and vascular status intact to all toes of the foot. Following a period of postoperative monitoring, the patient will be discharged home on the following written and oral postoperative instructions: 1. Keep the dressing clean, dry, and intact. 2. The patient to be strictly nonweightbearing with a knee scooter or crutches. 3. The patient should ice and elevate the foot when at rest. 4. The patient should contact Dr. Swift for all postop care and if any problems should arise. 5. Prescriptions were written for Percocet 5/325, dispensed 40 to be taken 1 p.o. q.4-6 hours as needed for severe pain. Furthermore, the patient should also take Xarelto 10 mg to be taken 1 p.o. daily starting 24 hours after surgery to prevent DVT for 14 days followed by one 325 mg aspirin until walking is re-initiated. Implants One Arthrex 3.5mm Headless Cannulated Screw One Arthrex Maxforce plate with five 3.0mm locking screws and one 3.0 Non locking Kreulock Screw Estimated Blood Loss 1 Drains No Packing No Pathology None sent Complications No immediate complications Condition Stable Disposition Same day
== END 2025-03-20 14:35 | disposition home or self-care (01) ==
PROVIDERS: Visit Provider Podiatrist Foot & Ankle Surgery
PROC: (CPT 28750; principal; 2025-03-20 11:00)
DX: M21.611 Bunion of right foot (principal); M19.071 Primary osteoarthritis, right ankle and foot
CPT/HCPCS: 28750; 99199; J0690; C1713; C1769; J0360; J2003; J2250; J2405; J2704; J3010; J7120